=== PATIENT | male | born 1965 | race Hispanic/Latino ===

== ENCOUNTER 2021-04-07 14:04 | Emergency (ER) | payer SELFPAY ==
--- OUTSIDE RECORDS SUMMARY | 2021-04-07 14:07 | XMS REPORT | Continuity of Care Document ---
:1965 Author Organization [facility] t Address [address] [place] [address] Dr. Samson [address] [place] [id number] Care Team Providers Name Role Phone Unavailable Unavailable Unavailable Problems This patient has no known problems. Allergies, Adverse Reactions, Alerts This patient has no known allergies or adverse reactions. Medications This patient has no known medications. Procedures This patient has no known procedures. Results This patient has no known results.
--- NOTE | 2021-04-07 16:00 | RAD REPORT ---
EXAM DESCRIPTION: CT - Head Brain Wo Cont - 04/07/2021 3:41 pm CLINICAL HISTORY: facial droop COMPARISON: No comparisons TECHNIQUE: Axial 5 mm thick images of the head were obtained without IV contrast. All CT scans are performed using dose optimization technique as appropriate and may include automated exposure control or mA/KV adjustment according to patient size. FINDINGS: No intracranial hemorrhage, mass, edema or shift of mid-line structures. No acute infarcti on changes seen. No abnormal extra-axial fluid collections. Ventricles are normal. Mastoid air cells and visualized portions of the paranasal sinuses are clear. No acute bony findings. IMPRESSION: Negative non-contrast CT head examination.
--- NOTE | 2021-04-07 19:54 | RAD REPORT ---
EXAM DESCRIPTION: MRI - Brain Wo Cont - 04/07/2021 7:27 pm CLINICAL HISTORY: right facial weakness COMPARISON: Head Brain Wo Cont dated 04/07/2021 TECHNIQUE: Sagittal T1-weighted images were obtained along with axial PD, heavily T2-weighted and T2 -FLAIR images. Axial DWI and ADC mapping sequences were also obtained along with coronal heavily T2-w eighted images. FINDINGS: No intracranial hemorrhage, mass or acute infarction. There is no edema or shift of midlin e structures. No extra-axial fluid collections. Santamaria-matter/white matter junction is preserved. Signa l voids are seen as a normal finding in the major intracranial vessels. No globe or orbital content abnormality. No sella or supra sella abnormality. Mastoid air cells and paranasal sinuses are clear. No middle here abnormality identified. IMPRESSION: Negative non-contrast MRI of the Brain.
--- NOTE | 2021-04-07 20:00 | EDPHYS ---
Physician Documentation [facility] Name: Iron Winston Age: 55 yrs Sex: Male : 1965 Arrival Date: 04/07/2021 Time: 14:07 Bed 12 Private MD: ED Physician Teddy Bales HPI: 04/07 17:59 This 55 yrs old Male presents to ER via Ambulatory with complaints of Facial kdr Droop. 17:59 The patient presents to the emergency department with weakness of the right side of the kdr face, that is mild. Noted by co-worker on Sunday - only today does he feel any sense of the change with blurry vision. No other medical problems.. Historical: - Allergies: 14:40 No Known Allergies; jl7 - Home Meds: 14:40 None [Active]; jl7 - PMHx: 14:40 None; jl7 - PSHx: 14:40 None; jl7 - Immunization history:: Client reports receiving the 2nd dose of the Covid vaccine, Date received: December 04, 2020 [employer]. - Social history:: Smoking status: Patient denies any tobacco usage or history of. ROS: 19:55 Constitutional: Negative for fever, chills, and weight loss, Eyes: Negative for injury, ildefonso pain, redness, and discharge, ENT: Negative for injury, pain, and discharge, Neck: Negative for injury, pain, and swelling, Cardiovascular: Negative for chest pain, palpitations, and edema, Respiratory: Negative for shortness of breath, cough, wheezing, and pleuritic chest pain, Abdomen/GI: Negative for abdominal pain, nausea, vomiting, diarrhea, and constipation, Back: Negative for injury and pain, : Negative for injury, bleeding, discharge, and swelling, MS/Extremity: Negative for injury and deformity, Skin: Negative for injury, rash, and discoloration, Psych: Negative for depression, anxiety, suicide ideation, homicidal ideation, and hallucinations, Allergy/Immunology: Negative for hives, rash, and allergies, Endocrine: Negative for neck swelling, polydipsia, polyuria, polyphagia, and marked weight changes, Hematologic/Lymphatic: Negative for swollen nodes, abnormal bleeding, and unusual bruising. 19:55 Neuro: Positive for weakness, of the forehead, right eye, right cheek and right jaw. Exam: 19:55 Constitutional: This is a well developed, well nourished patient who is awake, alert, ildefonso and in no acute distress. Head/Face: Normocephalic, atraumatic. Eyes: Pupils equal round and reactive to light, extra-ocular motions intact. Lids and lashes normal. Conjunctiva and sclera are non-icteric and not injected. Cornea within normal limits. Periorbital areas with no swelling, redness, or edema. ENT: Nares patent. No nasal discharge, no septal abnormalities noted. Tympanic membranes are normal and external auditory canals are clear. Oropharynx with no redness, swelling, or masses, exudates, or evidence of obstruction, uvula midline. Mucous membranes moist. Neck: Trachea midline, no thyromegaly or masses palpated, and no cervical lymphadenopathy. Supple, full range of motion without nuchal rigidity, or vertebral point tenderness. No Meningismus. Chest/axilla: Normal chest wall appearance and motion. Nontender with no deformity. No lesions are appreciated. Cardiovascular: Regular rate and rhythm with a normal S1 and S2. No gallops, murmurs, or rubs. Normal PMI, no JVD. No pulse deficits. Respiratory: Lungs have equal breath sounds bilaterally, clear to auscultation and percussion. No rales, rhonchi or wheezes noted. No increased work of breathing, no retractions or nasal flaring. Abdomen/GI: Soft, non-tender, with normal bowel sounds. No distension or tympany. No guarding or rebound. No evidence of tenderness throughout. Back: No spinal tenderness. No costovertebral tenderness. Full range of motion. Male : Normal genitalia with no discharge or lesions. Skin: Warm, dry with normal turgor. Normal color with no rashes, no lesions, and no evidence of cellulitis. MS/ Extremity: Pulses equal, no cyanosis. Neurovascular intact. Full, normal range of motion. Psych: Awake, alert, with orientation to person, place and time. Behavior, mood, and affect are within normal limits. 19:55 Neuro: Orientation: is normal, appropriate for stated age, no acute changes, Mentation: is normal, appropriate for stated age, no acute changes, Memory: is normal, immediate memory is intact, recent memory is intact, remote memory is intact, Cranial nerves: facial droop noted on left, with forehead involved. 20:06 ECG was reviewed by the Attending Physician. [facility] Vital Signs: 14:31 Pulse 83; Resp 15; Temp 98.9; Pulse Ox 98% ; jl7 14:42 BP 152 / 91; jl7 20:07 BP 150 / 83; Pulse 64; Resp 16; Pulse Ox 98% ; ch4 20:37 BP 146 / 80; Pulse 65; Resp 16; Temp 98; Pulse Ox 98% on R/A; ch4 NIH Stroke Scale Scores: 19:30 NIHSS Score: 1 ch4 MDM: 19:29 Patient medically screened. [facility] 19:57 Data reviewed: vital signs, nurses notes, radiologic studies, CT scan, MRI. Data [facility] interpreted: monitor worker: rate is 83 beats/min, rhythm is regular, Pulse oximetry: on room air is 98 %. Counseling: I had a detailed discussion with the patient and/or guardian regarding: the historical points, exam findings, and any diagnostic results supporting the discharge/admit diagnosis. 04/07 19:30 Order name: CBC with Diff [facility] 04/07 19:30 Order name: LFT's; Complete Time: 20:33 [facility] 04/07 19:30 Order name: Magnesium; Complete Time: 20:33 [facility] 04/07 19:30 Order name: NT PRO-BNP; Complete Time: 20:33 [facility] 04/07 19:30 Order name: PT-INR; Complete Time: 20:33 [facility] 04/07 14:46 Order name: CT Head Brain wo Cont; Complete Time: 16:07 04/07 18:07 Order name: MRI - Brain Wo Cont; Complete Time: 20:33 [facility] 04/07 19:30 Order name: Troponin (emerg Dept Use Only); Complete Time: 20:33 [facility] 04/07 19:30 Order name: XRAY Chest (1 view); Complete Time: 20:33 [facility] 04/07 19:30 Order name: EKG; Complete Time: 19:31 [facility] 04/07 19:30 Order name: Cardiac monitoring; Complete Time: 20:00 [facility] 04/07 19:30 Order name: Labs collected and sent; Complete Time: 20:06 [facility] 04/07 19:30 Order name: O2 Per Protocol; Complete Time: 20:06 [facility] 04/07 19:30 Order name: O2 Sat Monitoring; Complete Time: 20:06 ildefonso EC:06 Rate is 65 beats/min. Rhythm is regular. QRS [place] is Normal. VA interval is normal. QRS ildefonso interval is normal. QT interval is normal. No Q waves. T waves are Normal. No ST changes noted. Clinical impression: NSR w/ Non-specific ST/T Changes and No evidence of ischemia. Interpreted by me. Reviewed by me. Administered Medications: 20:37 Drug: predniSONE 60 mg Route: PO; ch4 20:38 Follow up: Response: No adverse reaction ch4 20:38 Not Given (Hemodynamic Parameters): NS 0.9% 1000 ml IV at 1 bolus Per protocol; 1000 mL ch4 bolus 20:38 Drug: Aspirin Chewable Tablet 324 mg Route: PO; ch4 20:38 Follow up: Response: No adverse reaction ch4 20:38 Drug: Valtrex (valACYclovir) 1000 mg Route: PO; ch4 20:38 Follow up: Response: No adverse reaction ch4 Disposition Summary: 04/07/21 19:59 Discharge Ordered Location: Home ildefonso Problem: new ildefonso Symptoms: have improved ildefonso Condition: Stable ildefonso Diagnosis - Marcus's palsy ildefonso Followup: ildefonso - With: Private Physician - When: 2 - 3 days - Reason: Recheck today's complaints, Continuance of care, Re-evaluation by your physician Followup: ildefonso - With: Tucker Champion MD - When: 2 - 3 days - Reason: Recheck today's complaints, Continuance of care, Re-evaluation by your physician Discharge Instructions: - Discharge Summary Sheet ildefonso - Marcus Palsy, Adult ildefonso - Aspirin and Your Heart ildefonso Forms: - Medication Reconciliation Form ildefonso - Thank You Letter ildefonso - Antibiotic Education ildefonso - Prescription Opioid Use ildefonso Prescriptions: - Artificial Tears (cmc) - instill 1 application by OPHTHALMIC route 6 times per day; 1 tube; Refills: 0, ildefonso Product Selection Permitted - Valtrex 1 gram Oral tablet - take 1 tablet by ORAL route 3 times per day; 21 tablet; Refills: 0, Product ildefonso Selection Permitted - Prednisone 20 mg Oral Tablet - take 3 tablets by ORAL route once daily for 5 days; 15 tablet; Refills: 0, ildefonso Product Selection Permitted NIH Stroke Scale - NIH Stroke Score Date: 04/07/2021 Time: 19:30 Total Score = 1 1a. Level of Consciousness (LOC) - 0(Alert) 1b. Level of Consciousness (LOC) (Month \T\ Age) - 0(Both) 1c. LOC Commands (Open \T\ Closes Eyes/Senior Designer/Art Director) - 0(Both) 2. Best Gaze (Lateral Gaze Paresis) - 0(Normal) 3. Visual Field Loss - 0(No visual loss) 4. Facial Palsy - 1(Minor Paralysis) 5a. Left Arm: Motor (10-second hold) - 0(No drift) 5b. Right Arm: Motor (10-second hold) - 0(No drift) 6a. Left Leg: Motor (5-second hold - always test supine) - 0(No drift) 6b. Right Leg: Motor (5-second hold - always test supine) - 0(No drift) 7. Limb Ataxia (finger/nose \T\ heel/[place] - test with eyes open) - 0(Absent) 8. Sensory Loss (pinprick arms/legs/face) - 0(Normal) 9. Best Language: Aphasia (description/naming/reading) - 0(No aphasia) 10. Dysarthria (speech clarity - read or repeat words) - 0(Normal) 11. Extinction and Inattention (visual/tactile/auditory/spatial/personal) - 0(No abnormality) Initials: ch4 Signatures: Dispatcher [employer] EDMS Teddy Bales MD MD cha Rittger, Kevin, MD MD kdr Leal, Jahala, RN RN jl7 Chrissy Lund, DILIP RN ch4 Corrections: (The following items were deleted from the chart) 20:00 19:30 EKG - Nurse/Tech ordered. [facility] 20:00 19:30 IV Saline Lock ordered. [facility] 20:00 19:31 Basic Metabolic Panel ordered. EDMS EDMS
--- NOTE | 2021-04-07 20:00 | ER ---
Nurse's Notes [facility] Name: Iron Winston Age: 55 yrs Sex: Male : 1965 Arrival Date: 04/07/2021 Time: 14:07 Bed 12 Private MD: Diagnosis: Marcus's palsy Presentation: 04/07 14:31 Chief complaint: Chief complaint: interpreter #[id number]: Right side facial droop, jl7 unknown onset, VAN negative; reports someone mentioned the facial droop on Sunday. Coronavirus screen: Client denies travel out of the [place] in the last 14 days. At this time, the client does not indicate any symptoms associated with coronavirus-19. Ebola Screen: No symptoms or risks identified at this time. 14:31 Method Of Arrival: Ambulatory [facility] 14:31 No acute neurological deficit is noted. Pre-hospital glucose is not applicable to this jl7 patient. Initial Sepsis Screen: Does the patient meet any 2 criteria? No. Patient's initial sepsis screen is negative. Does the patient have a suspected source of infection? No. Patient's initial sepsis screen is negative. Risk Assessment: Do you want to hurt yourself or someone else? Patient reports no desire to harm self or others. Onset of symptoms is unknown. 14:31 Acuity: HELEN 3 jl7 Triage Assessment: 14:40 The onset of the patients symptoms was. jl7 Stroke Activation: Symptom onset > 6 hours Physician: Stroke Attending; Name: ; Notified At: ; Arrived At: Physician: Chief Stroke Resident; Name: ; Notified At: ; Arrived At: Physician: Stroke Resident; Name: ; Notified At: ; Arrived At: Physician: ED Attending; Name: ; Notified At: ; Arrived At: Physician: ED Resident; Name: ; Notified At: ; Arrived At: Historical: - Allergies: 14:40 No Known Allergies; jl7 - Home Meds: 14:40 None [Active]; jl7 - PMHx: 14:40 None; jl7 - PSHx: 14:40 None; jl7 - Immunization history:: Client reports receiving the 2nd dose of the Covid vaccine, Date received: December 04, 2020 [employer]. - Social history:: Smoking status: Patient denies any tobacco usage or history of. Assessment: 17:55 Reassessment: Dr. Bryan in triage room assessing pt. jl7 19:30 VAN Scoring: Arm Drift: Patients demonstrates NO arm weakness. Patient is VAN Negative. ch4 Visual Disturbance: No visual disturbance noted. Aphasia: No aphasia noted. Neglect: No neglect noted. The patient has not been NPO before screening. The patient is currently on the following diet: normal. no difficulty swallowing The patient is alert, and able to follow commands. The patient does not exhibit slurred or garbled speech. The patient is not exhibiting difficulty speaking. The patient is exhibiting difficulty understanding words. The patient is able to swallow own secretions with no drooling or need for suction. Patient tolerated one teaspoon of water. No drooling, immediate coughing, gurgling, or clearing of the throat was noted. The patient tolerated 90mL of water. No drooling, immediate coughing, gurgling, or clearing of the throat was noted. The patient passed the bedside swallow screening. Oral medications may be given as ordered. Contact Physician for further diet orders. Provider notified of bedside swallow screening results: Teddy Bales MD. Pain: Denies pain. Neuro: No deficits noted. Vital Signs: 14:31 Pulse 83; Resp 15; Temp 98.9; Pulse Ox 98% ; jl7 14:42 BP 152 / 91; jl7 20:07 BP 150 / 83; Pulse 64; Resp 16; Pulse Ox 98% ; ch4 20:37 BP 146 / 80; Pulse 65; Resp 16; Temp 98; Pulse Ox 98% on R/A; ch4 NIH Stroke Scale Scores: 19:30 NIHSS Score: 1 ch4 ED Course: 14:07 Patient arrived in ED. as 14:37 Triage completed. jl7 14:40 Arm band placed on right wrist. jl7 15:41 CT Head Brain wo Cont In Process Unspecified. EDMS 16:07 Efra Ghosh MD is Attending Physician. kdr 19:19 MRI - Brain Wo Cont In Process Unspecified. EDMS 19:29 Attending Physician role handed off by Efra Ghosh MD ildefonso 19:29 Teddy Bales MD is Attending Physician. ildefonso 19:30 Chrissy Lund, DILIP is Primary Nurse. ch4 19:48 XRAY Chest (1 view) In Process Unspecified. EDMS 19:59 Tucker Champion MD is Referral Physician. ildefonso 20:36 No provider procedures requiring assistance completed. Inserted saline lock: 20 gauge ch4 in left antecubital area, using aseptic technique. 20:37 IV discontinued, intact, bleeding controlled, No redness/swelling at site. Pressure ch4 dressing applied. Administered Medications: 20:37 Drug: predniSONE 60 mg Route: PO; ch4 20:38 Follow up: Response: No adverse reaction ch4 20:38 Not Given (Hemodynamic Parameters): NS 0.9% 1000 ml IV at 1 bolus Per protocol; 1000 mL ch4 bolus 20:38 Drug: Aspirin Chewable Tablet 324 mg Route: PO; ch4 20:38 Follow up: Response: No adverse reaction ch4 20:38 Drug: Valtrex (valACYclovir) 1000 mg Route: PO; ch4 20:38 Follow up: Response: No adverse reaction ch4 Outcome: 19:59 Discharge ordered by . ildefonso 20:57 Patient left the ED. bb NIH Stroke Scale - NIH Stroke Score Date: 04/07/2021 Time: 19:30 Total Score = 1 1a. Level of Consciousness (LOC) - 0(Alert) 1b. Level of Consciousness (LOC) (Month \T\ Age) - 0(Both) 1c. LOC Commands (Open \T\ Closes Eyes/Malt Roaster) - 0(Both) 2. Best Gaze (Lateral Gaze Paresis) - 0(Normal) 3. Visual Field Loss - 0(No visual loss) 4. Facial Palsy - 1(Minor Paralysis) 5a. Left Arm: Motor (10-second hold) - 0(No drift) 5b. Right Arm: Motor (10-second hold) - 0(No drift) 6a. Left Leg: Motor (5-second hold - always test supine) - 0(No drift) 6b. Right Leg: Motor (5-second hold - always test supine) - 0(No drift) 7. Limb Ataxia (finger/nose \T\ heel/[place] - test with eyes open) - 0(Absent) 8. Sensory Loss (pinprick arms/legs/face) - 0(Normal) 9. Best Language: Aphasia (description/naming/reading) - 0(No aphasia) 10. Dysarthria (speech clarity - read or repeat words) - 0(Normal) 11. Extinction and Inattention (visual/tactile/auditory/spatial/personal) - 0(No abnormality) Initials: [facility] Signatures: Dispatcher [employer] EDMS Teddy Bales MD MD cha Rittger, Kevin, MD MD kdr Martinez, Amelia as Opal Camacho RN RN bb Mynor Anaya RN RN jl7 Chrissy Lund RN RN ch4 Corrections: (The following items were deleted from the chart) 14:37 14:31 Chief complaint: jl7 jl7 14:43 14:31 Chief complaint: interpreter #[id number]: Right side facial droop, jl7 unknown onset, VAN negative Chief complaint: interpreter #[id number]: Right side facial droop, unknown onset, VAN negative jl7
--- NOTE | 2021-04-07 20:02 | RAD REPORT ---
EXAM DESCRIPTION: RAD - Chest Single View - 04/07/2021 7:46 pm CLINICAL HISTORY: COUGH COMPARISON: None TECHNIQUE: AP portable chest image was obtained 04/07/2021 7:46 pm . FINDINGS: Lung volumes are low. No peripheral mass consolidation confirmed. Lung markings are mildly prominent. No convincing evidence for COVID pneumonia or other acute pneumonia process. COVID testin g history was not provided. Heart and vasculature are normal. No measurable pleural effusion and no pneumothorax. No acute bony abnormality seen. No acute aortic findings suspected. IMPRESSION: No acute cardiopulmonary process.
[2021-04-07 20:21] LABS: Absolute Lymphocytes (CBC) 3.7 K/uL (0.7-4.9); Basophils % 0.7 % (0-1.3); Lymphocytes % 46.7 % (15.3-44.8); MPV 8.3 fL (7.6-11.3); Protime INR 1.09; RBC Red Blood Cell Count 4.75 M/uL (4.33-5.43)
[2021-04-07 20:32] LABS: ALT/SGPT 46 U/L (12-78); AST/SGOT 25 U/L (15-37); Albumin 4.2 g/dL (3.4-5.0); Alkaline Phosphatase 93 U/L (45-117); Bilirubin Direct 0.1 mg/dL (0-0.2); Bilirubin Total 0.6 mg/dL (0.2-1.0); Magnesium 2.2 mg/dL (1.8-2.4); NT PRO-BNP 27 pg/mL (<125); Protein, Total 7.8 g/dL (6.4-8.2); Troponin (Emerg Dept Use Only) < 0.02 ng/mL (0.0-0.045)
[2021-04-07] MEDS ORDERED: VALACYCLOVIR 500 MG TAB ONE (20:43)
[2021-04-07] MEDS ORDERED: ASPIRIN 81 MG CHEWABLE TABLET ONE (20:44)
[2021-04-07] MEDS ORDERED: predniSONE 20 MG TAB ONE (20:44)
[2021-04-07 21:03] VITALS: O2SAT 98
[2021-04-07 21:06] LABS: Blood Morphology Comment NOT SEEN (NOT SEEN); Platelet Estimate ADEQ; White Blood Cell Scan OK (OK)
[2021-04-07 21:09] VITALS: BP 146/80; TEMP 98
== END 2021-04-07 20:57 | disposition home or self-care (01) ==
LOC: ER 14:04
DX: G51.0 Bell's palsy (principal)
CPT/HCPCS: 36415; 70450; 70551; 71045; 80076; 83735; 83880; 84484; 85025; 85610; 93005; 99283; J7512